=== PATIENT | female | born 1985 | race Caucasian/White ===

== ENCOUNTER 2019-07-27 05:27 | Inpatient (IN) | payer BC ==
[~2019-07-27 05:27] MED LIST: Sodium Chloride 0.9% 10 ML Syringe FLUSH PRN
[2019-07-27] MEDS: Lactated Ringers 1,000 ML IV SCH ×2 (06:05→06:42)
[2019-07-27] MEDS ORDERED: Metoclopramide 10 MG/2 ML SDV ONE (06:22)
[2019-07-27] MEDS ORDERED: Citric Acid/Sodium Citrate Solution 30 ML Cup ONE (06:22)
[2019-07-27] MEDS ORDERED: Citric Acid/Sodium Citrate Solution 30 ML Cup PO ONE (06:45)
[2019-07-27] MEDS ORDERED: Metoclopramide 10 MG/2 ML SDV IVPUSH ONE (06:45)
[2019-07-27] MEDS ORDERED: ceFAZolin 2 GM in Premix Bag 1 BAG IV ONE (07:00)
[2019-07-27] MEDS ORDERED: Oxytocin/Lactated Ringers 10 UNIT/1,000 ML BAG IV SCH (07:00)
--- NOTE | 2019-07-27 07:10 | PCM.PREANE ---
Preanesthetic Assessment - Procedure Proposed Procedure: - Anesthesia/Transfusion/Family Hx Anesthesia History: Prior Anesthesia Without Reaction Family History of Anesthesia Reaction: No Transfusion History: No Prior Transfusion(s) - Review of Systems General: No Symptoms Pulmonary: No Symptoms Cardiovascular: No Symptoms Gastrointestinal: No Symptoms Neurological: No Symptoms Other: Reports: None - Physical Assessment NPO Status Date: 07/26/19 NPO Status Time: 18:00 Vital Signs: Last Vital Signs Temp 37.0 C 07/27/19 05:54 Pulse Resp 14 07/27/19 05:54 BP 124/74 07/27/19 05:54 Pulse Ox 98 07/27/19 05:54 Height: 1.64 m Weight: 100.698 kg ASA Class: 2 Mental Status: Alert & Oriented x3 Airway Class: Mallampati = 2 Dentition: Reports: Normal Dentition Thyro-Mental Finger Breadths: 3 Mouth Opening Finger Breadths: 3 ROM/Head Extension: Full Lungs: Clear to Auscultation, Normal Respiratory Effort Cardiovascular: Regular Rate, Regular Rhythm - Lab Values: Laboratory Last Values WBC 9.84 K/mm3 (3.98-10.04) 07/27/19 05:45 RBC 3.90 M/mm3 (3.98-5.22) L 07/27/19 05:45 Hgb 11.1 gm/dl (11.2-15.7) L 07/27/19 05:45 Hct 35.0 % (34.1-44.9) 07/27/19 05:45 MCV 89.7 fl (79.4-94.8) 07/27/19 05:45 MCH 28.5 pg (25.6-32.2) 07/27/19 05:45 MCHC 31.7 g/dl (32.2-35.5) L 07/27/19 05:45 RDW Std Deviation 42.2 fL (36.4-46.3) 07/27/19 05:45 Plt Count 318 K/mm3 (182-369) 07/27/19 05:45 MPV 11.0 fl (9.4-12.3) 07/27/19 05:45 Neut % (Auto) 60.3 % (34.0-71.1) 07/27/19 05:45 Lymph % (Auto) 28.4 % (19.3-51.7) 07/27/19 05:45 Harmon % (Auto) 9.6 % (4.7-12.5) 07/27/19 05:45 Eos % (Auto) 0.4 (0.7-5.8) L 07/27/19 05:45 Baso % (Auto) 0.2 % (0.1-1.2) 07/27/19 05:45 Neut # (Auto) 5.94 K/mm3 (1.56-6.13) 07/27/19 05:45 Lymph # (Auto) 2.79 K/mm3 (1.18-3.74) 07/27/19 05:45 Harmon # (Auto) 0.94 K/mm3 (0.24-0.36) H 07/27/19 05:45 Eos # (Auto) 0.04 K/mm3 (0.04-0.36) 07/27/19 05:45 Baso # (Auto) 0.02 K/mm3 (0.01-0.08) 07/27/19 05:45 Manual Slide Review Normal smear 07/27/19 05:45 Creatinine 0.9 mg/dL (0.55-1.02) 07/27/19 05:45 Est Cr Clr Drug Dosing 78.39 mL/min 07/27/19 05:45 Estimated GFR (MDRD) > 60 mL/min (>60) 07/27/19 05:45 AST 21 U/L (15-37) 07/27/19 05:45 ALT 25 U/L (14-59) 07/27/19 05:45 - Allergies Allergies/Adverse Reactions: Allergies Allergy/AdvReac Type Severity Reaction Status Date / Time No Known Allergies Allergy Verified 07/27/19 05:40 - Anesthesia Plan Pre-Op Medication Ordered: None - Acknowledgements Anesthesia Type Planned: Spinal Pt an Appropriate Candidate for the Planned Anesthesia: Yes Alternatives and Risks of Anesthesia Discussed w Pt/Guardian: Yes Pt/Guardian Understands and Agrees with Anesthesia Plan: Yes PreAnesthesia Questionnaire Gastrointestinal History: Reports: GERD 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 OB/BYN History: C/S in 2011 - Past Surgical History GI Surgical History: Reports: Appendectomy Other GI Surgeries/Procedures: 1995- open appy ruptured in OR Musculoskeletal Surgical History: Reports: Arthroscopic Procedure, Other (See Below) Other Musculoskeletal Surgeries/Procedures:: 2016 ACL L knee reconstruction, Right lateral release knee arthroscopy 2007 - SUBSTANCE USE Smoking Status *Q: Former Smoker Tobacco Use Within Last Twelve Months: Cigarettes Second Hand Smoke Exposure: No Recreational Drug Use History: No - HOME MEDS Home Medications: Home Meds Aspirin 81 mg PO DAILY 07/20/19 [History] Docusate Sodium [Colace] 100 mg PO BID PRN 07/20/19 [History] Potassium Gluconate [Potassium] 99 mg PO DAILY 07/20/19 [History] No122/Iron/Folic Acid [ Multi Tablet] 1 each PO DAILY 07/20/19 [History] - CURRENT (IN HOUSE) MEDS Current Meds: Current Medications Cefazolin Sodium/Dextrose 2 gm (/ Premix) 50 mls @ 100 mls/hr IV ONETIME ONE Stop: 07/27/19 07:29 Lactated Ringer's (Ringers, Lactated) 1,000 mls @ 125 mls/hr IV ASDIRECTED KELSY Last Admin: 07/27/19 06:42 Dose: 125 mls/hr Oxytocin/Lactated Ringer's (Pitocin In Lr 10 Units/1,000 Ml) 10 unit in 1,000 mls @ 100 mls/hr IV ASDIRECTED KELSY; Protocol Sodium Chloride (Saline Flush) 10 ml FLUSH ASDIRECTED PRN PRN Reason: Keep Vein Open Discontinued Medications Citric Acid/Sodium Citrate (Bicitra Solution) 30 ml PO ONETIME ONE Stop: 07/27/19 06:46 Last Admin: 07/27/19 06:43 Dose: 30 ml Citric Acid/Sodium Citrate (Bicitra Solution) Confirm Administered Dose 30 ml .ROUTE .STK-MED ONE Stop: 07/27/19 06:23 Last Admin: 07/27/19 06:41 Dose: Not Given Metoclopramide HCl (Reglan) 10 mg IVPUSH ONETIME ONE Stop: 07/27/19 06:46 Last Admin: 07/27/19 06:43 Dose: 10 mg Metoclopramide HCl (Reglan) Confirm Administered Dose 10 mg .ROUTE .STK-MED ONE Stop: 07/27/19 06:23 Last Admin: 07/27/19 06:41 Dose: Not Given
[2019-07-27] MEDS ORDERED: ceFAZolin 1 GM Vial ONE (07:13)
[2019-07-27] MEDS ORDERED: Phenylephrine 1% 10 MG/ML SDV ONE (07:13)
[2019-07-27] MEDS ORDERED: Morphine PF 10 MG/10 ML SDV ONE (07:13)
[2019-07-27] MEDS ORDERED: Lactated Ringers 1,000 ML ONE (07:45)
[2019-07-27] MEDS ORDERED: Oxytocin 10 Units/1 ML SDV ONE (07:53)
[2019-07-27] MEDS ORDERED: Ketorolac 30 MG/ML SDV ONE (08:01)
[2019-07-27] MEDS ORDERED: diphenhydrAMINE 50 MG/ML SDV IVPUSH PRN ×2 (08:30→09:30)
--- NOTE | 2019-07-27 08:31 | PCM.POSTAN ---
POST ANESTHESIA ASSESSMENT - MENTAL STATUS Mental Status: Alert, Oriented - VITAL SIGNS Vital Signs: Last Vital Signs Temp 37.0 C 07/27/19 05:54 Pulse Resp 14 07/27/19 05:54 BP 124/74 07/27/19 05:54 Pulse Ox 98 07/27/19 05:54 - RESPIRATORY Respiratory Status: Respiratory Rate WNL, Airway Patent, O2 Saturation Stable - CARDIOVASCULAR CV Status: Pulse Rate WNL, Blood Pressure Stable - GASTROINTESTINAL GI Status: No Symptoms - PAIN Pain Score: 0 - POST OP HYDRATION Hydration Status: Adequate & Stable - OBSERVATIONS Free Text/Narrative:: no anesthesia complications noted
--- NOTE | 2019-07-27 08:32 | PCM.OPNOTE ---
- General Post-Op/Procedure Note Date of Surgery/Procedure: 07/27/19 Operative Procedure(s): Repeat low transverse Findings: Minimal scar tissue noted between the rectus and fascia. Minimal scar tissue between the blader and the MARILYN. Baby boy in vertex presentation. APGARS 8 & 9. Weight of 7 lbs 3 oz. Normal appearance of the uterus, ovaries, and fallopian tubes Pre Op Diagnosis: 37 2/7 wks. Gestational hypertension. Hx of Post-Op Diagnosis: Same Anesthesia Technique: Spinal Primary Surgeon: Nataliia Willingham Secondary Surgeon: Clau Jacobo Anesthesia Provider: Dayday Acosta Reason Head Resident Was Necessary: BMI of patient. Speed/safety of procedure Pathology: Cord blood collected. Placenta discarded Fluid Replacement, Intraop: 2,800 Output, Urine Amount: 700 EBL in mLs: 700 Complications: None Condition: Good Free Text/Narrative:: The risks, benefits, indications, potential complications, and alternatives were explained to the patient and informed consent obtained. After induction of anesthesia, the patient was placed in a supine position and then draped and prepped in the usual sterile manner. A Pfannenstiel incision was made and carried down through the subcutaneous tissue to the fascia. Fascial incision was made and extended transversely. The fascia was from the underlying rectus tissue superiorly and inferiorly. The peritoneum was identified and entered. Peritoneal incision was extended longitudinally. The utero-vesical peritoneal reflection was incised transversely and the bladder flap was bluntly freed from the lower uterine segment. A low transverse uterine incision was made sharply with a scalpel and extended bluntly in a cephalocaudad direction. A baby boy was delivered from a vertex presentation with APGARS as above. After the umbilical cord was clamped and cut cord blood was obtained for evaluation. The placenta was removed intact and appeared normal. The uterus was exteriorized and cleared of clots. The uterine outline, tubes and ovaries appeared normal. The uterine incision was closed with running locked sutures of 0 Vicryl. Hemostasis was noted. The uterus was then placed back into the abdomen. The infracolic gutters were cleared of blood clots. The fascia was then reapproximated with running sutures of 0 Vicryl. The subcutaneous tissue was irrigated with sterile warm normal saline, hemostasis obtained with cautery. This layer was also closed with a running 0 vicryl as well. The skin was reapproximated with running Subcuticular 4-0 monocryl sutures. Instrument, sponge, and needle counts were correct prior the abdominal closure and at the conclusion of the case.
[2019-07-27] MEDS ORDERED: Ondansetron 4 MG/2 ML SDV IV PRN (09:30)
[2019-07-27] MEDS ORDERED: ePHEDrine 50 MG/ML SDV IVPUSH PRN (09:30)
[2019-07-27] MEDS ORDERED: Naloxone 0.4 MG/ML SDV IVPUSH PRN (09:30)
[2019-07-27] MEDS ORDERED: Dextrose 5%-Lactated Ringers 1,000 ML IV SCH (09:30)
[2019-07-27] MEDS ORDERED: Acetaminophen/oxyCODONE 325-5 MG Tab PO PRN (09:30)
[2019-07-27] MEDS: Ketorolac 30 MG/ML SDV IVPUSH SCH ×2 (15:07→21:11)
[2019-07-28] MEDS: Ketorolac 30 MG/ML SDV IVPUSH SCH (02:26)
[2019-07-28] MEDS: Acetaminophen 325 MG Tab PO PRN ×2 (06:17→10:31)
--- NOTE | 2019-07-28 06:55 | PCM.PNPP ---
- General Info Date of Service: 07/28/19 Functional Status: Reports: Pain Controlled, Tolerating Diet, Ambulating - Review of Systems General: Reports: No Symptoms Pulmonary: Reports: No Symptoms Cardiovascular: Reports: No Symptoms Gastrointestinal: Reports: Abdominal Pain (managed with medications ) Genitourinary: Reports: No Symptoms Musculoskeletal: Reports: No Symptoms - Patient Data Vital Signs - Most Recent: Last Vital Signs Temp 36.9 C 07/28/19 05:15 Pulse 86 07/28/19 05:15 Resp 16 07/28/19 05:15 BP 133/66 07/28/19 05:15 Pulse Ox 95 07/28/19 05:15 Weight - Most Recent: 100.698 kg I&O - Last 24 Hours: Intake & Output 07/27/19 07/27/19 07/28/19 14:59 22:59 06:59 Intake Total 3300 1000 Output Total 830 1500 1800 Balance 2470 -500 -1800 Lab Results - Last 24 Hours: Laboratory Results - last 24 hr 07/27/19 07/27/19 07/28/19 Range/Units 05:35 05:45 05:45 WBC 9.61 (3.98-10.04) K/mm3 RBC 3.11 L (3.98-5.22) M/mm3 Hgb 8.7 L D (11.2-15.7) gm/dl Hct 28.1 L (34.1-44.9) % MCV 90.4 (79.4-94.8) fl MCH 28.0 (25.6-32.2) pg MCHC 31.0 L (32.2-35.5) g/dl RDW Std Deviation 41.8 (36.4-46.3) fL Plt Count 240 D (182-369) K/mm3 MPV 10.9 (9.4-12.3) fl RPR Non-reactive (NONREACTIVE) Blood Type O POSITIVE Gel Antibody Screen Negative Med Orders - Current: Current Medications Acetaminophen (Tylenol) 650 mg PO Q4H PRN PRN Reason: Pain (mild 1-3) Last Admin: 07/28/19 06:17 Dose: 650 mg Diphenhydramine HCl (Benadryl) 25 mg IVPUSH Q6H PRN PRN Reason: Itching or Nausea Last Admin: 07/27/19 15:38 Dose: 25 mg Docusate Sodium (Colace) 100 mg PO Q12H PRN PRN Reason: Constipation Ephedrine Sulfate (Ephedrine Sulfate) 5 mg IVPUSH SEECOMMENT PRN PRN Reason: Other Ibuprofen (Motrin) 600 mg PO Q6H PRN PRN Reason: mild pain or fever Naloxone HCl (Narcan) 0.1 mg IVPUSH SEECOMMENT PRN PRN Reason: Respiratory Depression Ondansetron HCl (Zofran) 4 mg IV Q8H PRN PRN Reason: Nausea/Vomiting Oxycodone/Acetaminophen (Percocet 325-5 Mg) 2 tab PO Q4H PRN PRN Reason: Pain (severe 7-10) Oxycodone/Acetaminophen (Percocet 325-5 Mg) 1 tab PO Q4H PRN PRN Reason: Pain (moderate 4-6) Prenat Multivit/[place]/Iron/Folic Ac ( Plus Iron) 1 each PO DAILY KELSY Discontinued Medications Cefazolin Sodium (Ancef) Confirm Administered Dose 2 gm .ROUTE .STK-MED ONE Stop: 07/27/19 07:14 Citric Acid/Sodium Citrate (Bicitra Solution) 30 ml PO ONETIME ONE Stop: 07/27/19 06:46 Last Admin: 07/27/19 06:43 Dose: 30 ml Citric Acid/Sodium Citrate (Bicitra Solution) Confirm Administered Dose 30 ml .ROUTE .STK-MED ONE Stop: 07/27/19 06:23 Last Admin: 07/27/19 06:41 Dose: Not Given Diphenhydramine HCl (Benadryl) 25 mg IVPUSH Q6H PRN PRN Reason: Itching Cefazolin Sodium/Dextrose 2 gm (/ Premix) 50 mls @ 100 mls/hr IV ONETIME ONE Stop: 07/27/19 07:29 Last Admin: 07/27/19 13:13 Dose: Not Given Lactated Ringer's (Ringers, Lactated) 1,000 mls @ 125 mls/hr IV ASDIRECTED [facility] Last Admin: 07/27/19 06:42 Dose: 125 mls/hr Oxytocin/Lactated Ringer's (Pitocin In Lr 10 Units/1,000 Ml) 10 unit in 1,000 mls @ 100 mls/hr IV ASDIRECTED KELSY; Protocol Lactated Ringer's (Ringers, Lactated) Confirm Administered Dose 1,000 mls @ as directed .ROUTE .STK-MED ONE Stop: 07/27/19 07:46 Dextrose/Lactated Ringer's (Dextrose 5%-Lactated Ringers) 1,000 mls @ 125 mls/ hr IV ASDIRECTED KELSY Stop: 07/27/19 17:29 Last Admin: 07/27/19 10:20 Dose: 125 mls/hr Ketorolac Tromethamine (Toradol) Confirm Administered Dose 30 mg .ROUTE .STK- MED ONE Stop: 07/27/19 08:02 Ketorolac Tromethamine (Toradol) 30 mg IVPUSH Q6H KELSY Stop: 07/28/19 02:16 Last Admin: 07/28/19 02:26 Dose: 30 mg Metoclopramide HCl (Reglan) 10 mg IVPUSH ONETIME ONE Stop: 07/27/19 06:46 Last Admin: 07/27/19 06:43 Dose: 10 mg Metoclopramide HCl (Reglan) Confirm Administered Dose 10 mg .ROUTE .STK-MED ONE Stop: 07/27/19 06:23 Last Admin: 07/27/19 06:41 Dose: Not Given Morphine Sulfate (Duramorph Pf) Confirm Administered Dose 10 mg .ROUTE .STK-MED ONE Stop: 07/27/19 07:14 Oxytocin (Pitocin) Confirm Administered Dose 10 unit .ROUTE .STK-MED ONE Stop: 07/27/19 07:54 Phenylephrine HCl (Pierce-Synephrine) Confirm Administered Dose 10 mg .ROUTE .STK- MED ONE Stop: 07/27/19 07:14 Sodium Chloride (Saline Flush) 10 ml FLUSH ASDIRECTED PRN PRN Reason: Keep Vein Open - Infant Interaction Infant Disposition, : [place] in Room with Family Interaction: Holding Feeding: Attempted ; Nursed Fair/Poor Support Person: Significant Other - Recovery Exam Fundal Tone: Firm Fundal Level: At Umbilicus Fundal Placement: Midline Lochia Amount: Scant, Small Lochia Color: Rubra/Red Perineum Description: Intact, Minimal Bruising/Swelling Episiotomy/Laceration: None Bladder Status: Nonpalpable, Indwelling Catheter in Place Urinary Elimination: Indwelling Catheter - Exam General: Alert, Oriented, Cooperative Lungs: Clear to Auscultation, Normal Respiratory Effort Cardiovascular: Regular Rate, Regular Rhythm GI/Abdominal Exam: Soft, Tender (appropriate post op) Extremities: Pedal Edema - Problem List & Annotations (1) 37 weeks gestation of SNOMED Code(s): 52505199 Code(s): Z3A.37 - 37 WEEKS GESTATION OF Status: Acute Current Visit: Yes (2) History of SNOMED Code(s): 743393605 Code(s): Z98.891 - HISTORY OF UTERINE SCAR FROM PREVIOUS SURGERY Status: Acute Current Visit: Yes (3) Gestational hypertension SNOMED Code(s): 278442083 Code(s): O13.9 - GESTATIONAL HTN W/O SIGNIFICANT PROTEINURIA, UNSP TRIMESTER Status: Acute Current Visit: Yes Qualifiers: Trimester: third trimester Qualified Code(s): O13.3 - Gestational [ -induced] hypertension without significant proteinuria, third trimester (4) S/P repeat low transverse SNOMED Code(s): 032577269, 95297654, 259247466, 368612543, 184355086 Code(s): Z98.891 - HISTORY OF UTERINE SCAR FROM PREVIOUS SURGERY Status: Acute Current Visit: Yes - Problem List Review Problem List Initiated/Reviewed/Updated: Yes - My Orders Last 24 Hours: My Active Orders 07/27/19 09:30 Activity as Tolerated [RC] .Routine Antiembolic Devices [RC] PER UNIT ROUTINE Communication Order [RC] PER UNIT ROUTINE Intake and Output [RC] Q4HR May Shower [RC] PER UNIT ROUTINE Notify Provider Intake and Out [RC] ASDIRECTED RT Incentive Spirometry [RC] Q2HWA Vital Signs [RC] Q4HR Acetaminophen/oxyCODONE [Percocet 325-5 MG] 1 tab PO Q4H PRN Acetaminophen/oxyCODONE [Percocet 325-5 MG] 2 tab PO Q4H PRN Docusate Sodium [Colace] 100 mg PO Q12H PRN Naloxone [Narcan] 0.1 mg IVPUSH SEECOMMENT PRN Ondansetron [Zofran] 4 mg IV Q8H PRN diphenhydrAMINE [Benadryl] 25 mg IVPUSH Q6H PRN ePHEDrine [ePHEDrine sulfate] 5 mg IVPUSH SEECOMMENT PRN Assess Lochia [WOMSER] Per Unit Routine Assess Uterine Involution [WOMSER] Per Unit Routine Breast Pump [WOMSER] Per Unit Routine Heat Therapy [OM.PC] Per Unit Routine Peripheral IV Discontinue [OM.PC] Routine Sequential Compression Device [OM.PC] Per Unit Routine 07/27/19 Breakfast Regular Diet [DIET] 07/28/19 06:01 Acetaminophen [Tylenol] 650 mg PO Q4H PRN 07/28/19 08:34 Urinary Catheter Removal [RC] Per Unit Routine 07/28/19 09:00 Ibuprofen [Motrin] 600 mg PO Q6H PRN Vit with Ca/FA/Iron [ Plus Iron] 1 each PO DAILY - Assessment Assessment:: POD#1 - Plan Plan:: * Routine cares * Monitor BP's * Hb with appropriate drop * Breast feeding * Discharge home in 2 days
--- NOTE | 2019-07-28 07:32 | PCM48HPAN ---
Post Anesthesia Note - EVALUATION WITHIN 48HRS OF ANESTHETIC Vital Signs in Normal Range: Yes Patient Participated in Evaluation: Yes Respiratory Function Stable: Yes Airway Patent: Yes Cardiovascular Function Stable: Yes Hydration Status Stable: Yes Pain Control Satisfactory: Yes Nausea and Vomiting Control Satisfactory: Yes Mental Status Recovered: Yes Vital Signs: Last Vital Signs Temp 36.9 C 07/28/19 05:15 Pulse 86 07/28/19 05:15 Resp 16 07/28/19 05:15 BP 133/66 07/28/19 05:15 Pulse Ox 95 07/28/19 05:15 - COMMENTS/OBSERVATIONS Free Text/Narrative:: no anesthesia complications noted
[2019-07-28] MEDS: Docusate Sodium 100 MG Cap PO PRN ×2 (09:09→22:17)
[2019-07-28] MEDS: Prenatal Multivitamin with Calcium/Folic Acid/Iron Tab PO SCH (09:09)
[2019-07-28] MEDS: Ibuprofen 600 MG Tab PO PRN ×2 (14:46→22:17)
[2019-07-28] MEDS ORDERED: Measles, Mumps & Rubella Vaccine 0.5 ML SDV SUBCUT ONE (15:17)
[2019-07-28] MEDS: Acetaminophen/oxyCODONE 325-5 MG Tab PO PRN (17:27)
[2019-07-29] MEDS: Ibuprofen 600 MG Tab PO PRN ×2 (05:10→15:41)
--- NOTE | 2019-07-29 07:45 | PCM.PNPP ---
- General Info Date of Service: 07/29/19 Functional Status: Reports: Pain Controlled, Tolerating Diet, Ambulating, Urinating - Review of Systems General: Reports: No Symptoms Pulmonary: Reports: No Symptoms Cardiovascular: Reports: No Symptoms Gastrointestinal: Reports: Abdominal Pain (has been better managed since started using percocet ) Genitourinary: Reports: No Symptoms Musculoskeletal: Reports: No Symptoms Neurological: Reports: No Symptoms - Patient Data Vital Signs - Most Recent: Last Vital Signs Temp 36.6 C 07/29/19 03:01 Pulse 91 07/29/19 03:01 Resp 16 07/29/19 03:01 BP 138/81 07/29/19 03:01 Pulse Ox 98 07/29/19 03:01 Weight - Most Recent: 100.698 kg I&O - Last 24 Hours: Intake & Output 07/28/19 07/29/19 07/29/19 22:59 06:59 14:59 Intake Total 2800 Output Total 1000 Balance 1800 Med Orders - Current: Current Medications Acetaminophen (Tylenol) 650 mg PO Q4H PRN PRN Reason: Pain (mild 1-3) Last Admin: 07/28/19 10:31 Dose: 650 mg Diphenhydramine HCl (Benadryl) 25 mg IVPUSH Q6H PRN PRN Reason: Itching or Nausea Last Admin: 07/27/19 15:38 Dose: 25 mg Docusate Sodium (Colace) 100 mg PO Q12H PRN PRN Reason: Constipation Last Admin: 07/28/19 22:17 Dose: 100 mg Ephedrine Sulfate (Ephedrine Sulfate) 5 mg IVPUSH SEECOMMENT PRN PRN Reason: Other Ibuprofen (Motrin) 600 mg PO Q6H PRN PRN Reason: mild pain or fever Last Admin: 07/29/19 05:10 Dose: 600 mg Naloxone HCl (Narcan) 0.1 mg IVPUSH SEECOMMENT PRN PRN Reason: Respiratory Depression Ondansetron HCl (Zofran) 4 mg IV Q8H PRN PRN Reason: Nausea/Vomiting Oxycodone/Acetaminophen (Percocet 325-5 Mg) 2 tab PO Q4H PRN PRN Reason: Pain (severe 7-10) Last Admin: 07/28/19 17:27 Dose: 2 tab Oxycodone/Acetaminophen (Percocet 325-5 Mg) 1 tab PO Q4H PRN PRN Reason: Pain (moderate 4-6) Last Admin: 07/28/19 13:02 Dose: 1 tab Prenat Multivit/Electrical Design Technologist/Iron/Folic Ac ( Plus Iron) 1 each PO DAILY KELSY Last Admin: 07/28/19 09:09 Dose: 1 each Discontinued Medications Cefazolin Sodium (Ancef) Confirm Administered Dose 2 gm .ROUTE .STK-MED ONE Stop: 07/27/19 07:14 Citric Acid/Sodium Citrate (Bicitra Solution) 30 ml PO ONETIME ONE Stop: 07/27/19 06:46 Last Admin: 07/27/19 06:43 Dose: 30 ml Citric Acid/Sodium Citrate (Bicitra Solution) Confirm Administered Dose 30 ml .ROUTE .STK-MED ONE Stop: 07/27/19 06:23 Last Admin: 07/27/19 06:41 Dose: Not Given Diphenhydramine HCl (Benadryl) 25 mg IVPUSH Q6H PRN PRN Reason: Itching Cefazolin Sodium/Dextrose 2 gm (/ Premix) 50 mls @ 100 mls/hr IV ONETIME ONE Stop: 07/27/19 07:29 Last Admin: 07/27/19 13:13 Dose: Not Given Lactated Ringer's (Ringers, Lactated) 1,000 mls @ 125 mls/hr IV ASDIRECTED [facility] Last Admin: 07/27/19 06:42 Dose: 125 mls/hr Oxytocin/Lactated Ringer's (Pitocin In Lr 10 Units/1,000 Ml) 10 unit in 1,000 mls @ 100 mls/hr IV ASDIRECTED [facility]; Protocol Lactated Ringer's (Ringers, Lactated) Confirm Administered Dose 1,000 mls @ as directed .ROUTE .STK-MED ONE Stop: 07/27/19 07:46 Dextrose/Lactated Ringer's (Dextrose 5%-Lactated Ringers) 1,000 mls @ 125 mls/ hr IV ASDIRECTED [facility] Stop: 07/27/19 17:29 Last Admin: 07/27/19 10:20 Dose: 125 mls/hr Ketorolac Tromethamine (Toradol) Confirm Administered Dose 30 mg .ROUTE .STK- MED ONE Stop: 07/27/19 08:02 Ketorolac Tromethamine (Toradol) 30 mg IVPUSH Q6H KELSY Stop: 07/28/19 02:16 Last Admin: 07/28/19 02:26 Dose: 30 mg Measles/Mumps/Rubella Vaccine Live (M-M-R Ii Vaccine) 0.5 ml SUBCUT .ONCE ONE Stop: 07/28/19 15:18 Last Admin: 07/28/19 15:47 Dose: 0.5 ml Metoclopramide HCl (Reglan) 10 mg IVPUSH ONETIME ONE Stop: 07/27/19 06:46 Last Admin: 07/27/19 06:43 Dose: 10 mg Metoclopramide HCl (Reglan) Confirm Administered Dose 10 mg .ROUTE .STK-MED ONE Stop: 07/27/19 06:23 Last Admin: 07/27/19 06:41 Dose: Not Given Morphine Sulfate (Duramorph Pf) Confirm Administered Dose 10 mg .ROUTE .STK-MED ONE Stop: 07/27/19 07:14 Oxytocin (Pitocin) Confirm Administered Dose 10 unit .ROUTE .STK-MED ONE Stop: 07/27/19 07:54 Phenylephrine HCl (Pierce-Synephrine) Confirm Administered Dose 10 mg .ROUTE .STK- MED ONE Stop: 07/27/19 07:14 Sodium Chloride (Saline Flush) 10 ml FLUSH ASDIRECTED PRN PRN Reason: Keep Vein Open - Infant Interaction Infant Disposition, : in Room with Family Infant Interaction: Holding Infant Feeding: Attempted ; Nursed Fair/Poor Support Person: Significant Other - Recovery Exam Fundal Tone: Firm Fundal Level: 1 Fingerbreadths Below Umbilicus Fundal Placement: Midline Lochia Amount: Small Lochia Color: Rubra/Red Perineum Description: Intact, Minimal Bruising/Swelling Episiotomy/Laceration: None Bladder Status: Voiding Urinary Elimination: Voided - Exam General: Alert, Oriented, Cooperative Lungs: Clear to Auscultation, Normal Respiratory Effort Cardiovascular: Regular Rate, Regular Rhythm GI/Abdominal Exam: Soft, Tender (appropriate post op) Extremities: Normal Inspection Skin: Warm, Dry, Intact Wound/Incisions: Healing Well - Problem List & Annotations (1) 37 weeks gestation of SNOMED Code(s): 66345106 Code(s): Z3A.37 - 37 WEEKS GESTATION OF Status: Acute Current Visit: Yes (2) History of SNOMED Code(s): 439744426 Code(s): Z98.891 - HISTORY OF UTERINE SCAR FROM PREVIOUS SURGERY Status: Acute Current Visit: Yes (3) Gestational hypertension SNOMED Code(s): 754192781 Code(s): O13.9 - GESTATIONAL HTN W/O SIGNIFICANT PROTEINURIA, UNSP TRIMESTER Status: Acute Current Visit: Yes Qualifiers: Trimester: third trimester Qualified Code(s): O13.3 - Gestational [ -induced] hypertension without significant proteinuria, third trimester (4) S/P repeat low transverse SNOMED Code(s): 524439329, 93520795, 416060942, 783386023, 637258313 Code(s): Z98.891 - HISTORY OF UTERINE SCAR FROM PREVIOUS SURGERY Status: Acute Current Visit: Yes - Problem List Review Problem List Initiated/Reviewed/Updated: Yes - My Orders Last 24 Hours: My Active Orders 07/28/19 09:00 Ibuprofen [Motrin] 600 mg PO Q6H PRN Vit with Ca/FA/Iron [ Plus Iron] 1 each PO DAILY - Assessment Assessment:: POD#2 - Plan Plan:: * Routine cares * Monitor BP's. Have been normal to mild range * Breast feeding and pumping * Discharge home tomorrow
[2019-07-29] MEDS: Prenatal Multivitamin with Calcium/Folic Acid/Iron Tab PO SCH (08:55)
[2019-07-29] MEDS: Acetaminophen/oxyCODONE 325-5 MG Tab PO PRN ×2 (08:55→18:21)
[2019-07-30] MEDS: Ibuprofen 600 MG Tab PO PRN ×2 (01:24→15:00)
--- NOTE | 2019-07-30 05:05 | PCM.PNPP ---
- General Info Date of Service: 07/30/19 Functional Status: Reports: Pain Controlled, Tolerating Diet, Ambulating, Urinating - Review of Systems General: Reports: No Symptoms Pulmonary: Reports: No Symptoms Cardiovascular: Reports: No Symptoms Gastrointestinal: Reports: Abdominal Pain (well controlled today ) Genitourinary: Reports: No Symptoms Musculoskeletal: Reports: No Symptoms Neurological: Reports: No Symptoms - Patient Data Vital Signs - Most Recent: Last Vital Signs Temp 36.4 C 07/29/19 19:50 Pulse 88 07/29/19 19:50 Resp 19 07/29/19 19:50 BP 136/89 07/29/19 19:50 Pulse Ox 98 07/29/19 19:50 Weight - Most Recent: 100.698 kg I&O - Last 24 Hours: Intake & Output 07/29/19 07/29/19 07/30/19 14:59 22:59 06:59 Intake Total 180 Balance 180 Med Orders - Current: Current Medications Acetaminophen (Tylenol) 650 mg PO Q4H PRN PRN Reason: Pain (mild 1-3) Last Admin: 07/28/19 10:31 Dose: 650 mg Diphenhydramine HCl (Benadryl) 25 mg IVPUSH Q6H PRN PRN Reason: Itching or Nausea Last Admin: 07/27/19 15:38 Dose: 25 mg Docusate Sodium (Colace) 100 mg PO Q12H PRN PRN Reason: Constipation Last Admin: 07/28/19 22:17 Dose: 100 mg Ephedrine Sulfate (Ephedrine Sulfate) 5 mg IVPUSH SEECOMMENT PRN PRN Reason: Other Ibuprofen (Motrin) 600 mg PO Q6H PRN PRN Reason: mild pain or fever Last Admin: 07/30/19 01:24 Dose: 600 mg Naloxone HCl (Narcan) 0.1 mg IVPUSH SEECOMMENT PRN PRN Reason: Respiratory Depression Ondansetron HCl (Zofran) 4 mg IV Q8H PRN PRN Reason: Nausea/Vomiting Oxycodone/Acetaminophen (Percocet 325-5 Mg) 2 tab PO Q4H PRN PRN Reason: Pain (severe 7-10) Last Admin: 07/29/19 18:21 Dose: 2 tab Oxycodone/Acetaminophen (Percocet 325-5 Mg) 1 tab PO Q4H PRN PRN Reason: Pain (moderate 4-6) Last Admin: 07/28/19 13:02 Dose: 1 tab Prenat Multivit/[place]/Iron/Folic Ac ( Plus Iron) 1 each PO DAILY KELSY Last Admin: 07/29/19 08:55 Dose: 1 each Discontinued Medications Cefazolin Sodium (Ancef) Confirm Administered Dose 2 gm .ROUTE .STK-MED ONE Stop: 07/27/19 07:14 Citric Acid/Sodium Citrate (Bicitra Solution) 30 ml PO ONETIME ONE Stop: 07/27/19 06:46 Last Admin: 07/27/19 06:43 Dose: 30 ml Citric Acid/Sodium Citrate (Bicitra Solution) Confirm Administered Dose 30 ml .ROUTE .ST-MED ONE Stop: 07/27/19 06:23 Last Admin: 07/27/19 06:41 Dose: Not Given Diphenhydramine HCl (Benadryl) 25 mg IVPUSH Q6H PRN PRN Reason: Itching Cefazolin Sodium/Dextrose 2 gm (/ Premix) 50 mls @ 100 mls/hr IV ONETIME ONE Stop: 07/27/19 07:29 Last Admin: 07/27/19 13:13 Dose: Not Given Lactated Ringer's (Ringers, Lactated) 1,000 mls @ 125 mls/hr IV ASDIRECTED [facility] Last Admin: 07/27/19 06:42 Dose: 125 mls/hr Oxytocin/Lactated Ringer's (Pitocin In Lr 10 Units/1,000 Ml) 10 unit in 1,000 mls @ 100 mls/hr IV ASDIRECTED [facility]; Protocol Lactated Ringer's (Ringers, Lactated) Confirm Administered Dose 1,000 mls @ as directed .ROUTE .STK-MED ONE Stop: 07/27/19 07:46 Dextrose/Lactated Ringer's (Dextrose 5%-Lactated Ringers) 1,000 mls @ 125 mls/ hr IV ASDIRECTED [facility] Stop: 07/27/19 17:29 Last Admin: 07/27/19 10:20 Dose: 125 mls/hr Ketorolac Tromethamine (Toradol) Confirm Administered Dose 30 mg .ROUTE .STK- MED ONE Stop: 07/27/19 08:02 Ketorolac Tromethamine (Toradol) 30 mg IVPUSH Q6H KELSY Stop: 07/28/19 02:16 Last Admin: 07/28/19 02:26 Dose: 30 mg Measles/Mumps/Rubella Vaccine Live (M-M-R Ii Vaccine) 0.5 ml SUBCUT .ONCE ONE Stop: 07/28/19 15:18 Last Admin: 07/28/19 15:47 Dose: 0.5 ml Metoclopramide HCl (Reglan) 10 mg IVPUSH ONETIME ONE Stop: 07/27/19 06:46 Last Admin: 07/27/19 06:43 Dose: 10 mg Metoclopramide HCl (Reglan) Confirm Administered Dose 10 mg .ROUTE .STK-MED ONE Stop: 07/27/19 06:23 Last Admin: 07/27/19 06:41 Dose: Not Given Morphine Sulfate (Duramorph Pf) Confirm Administered Dose 10 mg .ROUTE .STK-MED ONE Stop: 07/27/19 07:14 Oxytocin (Pitocin) Confirm Administered Dose 10 unit .ROUTE .STK-MED ONE Stop: 07/27/19 07:54 Phenylephrine HCl (Pierce-Synephrine) Confirm Administered Dose 10 mg .ROUTE .STK- MED ONE Stop: 07/27/19 07:14 Sodium Chloride (Saline Flush) 10 ml FLUSH ASDIRECTED PRN PRN Reason: Keep Vein Open - Interaction Infant Disposition, : [place] in Room with Family Interaction: Holding Infant Feeding: Attempted ; Nursed Fair/Poor Support Person: Significant Other - Recovery Exam Fundal Tone: Firm Fundal Level: 1 Fingerbreadths Below Umbilicus Fundal Placement: Midline Lochia Amount: Small Lochia Color: Rubra/Red Perineum Description: Intact, Minimal Bruising/Swelling Episiotomy/Laceration: None Bladder Status: Voiding Urinary Elimination: Voided - Exam General: Alert, Oriented, Cooperative Lungs: Clear to Auscultation, Normal Respiratory Effort Cardiovascular: Regular Rate, Regular Rhythm GI/Abdominal Exam: Soft, Tender (appropriate post op ) Extremities: Normal Inspection Skin: Warm, Dry, Intact Wound/Incisions: Healing Well - Problem List & Annotations (1) 37 weeks gestation of SNOMED Code(s): 75672467 Code(s): Z3A.37 - 37 WEEKS GESTATION OF Status: Acute Current Visit: Yes (2) History of SNOMED Code(s): 538301120 Code(s): Z98.891 - HISTORY OF UTERINE SCAR FROM PREVIOUS SURGERY Status: Acute Current Visit: Yes (3) Gestational hypertension SNOMED Code(s): 876354117 Code(s): O13.9 - GESTATIONAL HTN W/O SIGNIFICANT PROTEINURIA, UNSP TRIMESTER Status: Acute Current Visit: Yes Qualifiers: Trimester: third trimester Qualified Code(s): O13.3 - Gestational [ -induced] hypertension without significant proteinuria, third trimester (4) S/P repeat low transverse SNOMED Code(s): 121153557, 69797288, 474595648, 100507066, 313963504 Code(s): Z98.891 - HISTORY OF UTERINE SCAR FROM PREVIOUS SURGERY Status: Acute Current Visit: Yes - Problem List Review Problem List Initiated/Reviewed/Updated: Yes - Assessment Assessment:: POD#3 - Plan Plan:: * Routine cares * BP's continue to be normal to mild range. Will follow up in 1 week for BP check * Breast feeding and pumping * Discharge today
--- NOTE | 2019-07-30 05:07 | PCM.DCSUM1 ---
Discharge Summary - Discharge Data Discharge Date: 07/30/19 Discharge Disposition: Home, Self-Care 01 Condition: Good - Referral to Home Health Primary Care Physician: Nataliia Willingham MD - Discharge Diagnosis/Problem(s) (1) 37 weeks gestation of SNOMED Code(s): 54712295 ICD Code: Z3A.37 - 37 WEEKS GESTATION OF Status: Acute Current Visit: Yes (2) History of SNOMED Code(s): 100570308 ICD Code: Z98.891 - HISTORY OF UTERINE SCAR FROM PREVIOUS SURGERY Status: Acute Current Visit: Yes (3) Gestational hypertension SNOMED Code(s): 878209310 ICD Code: O13.9 - GESTATIONAL HTN W/O SIGNIFICANT PROTEINURIA, UNSP TRIMESTER Status: Acute Current Visit: Yes Qualifiers: Trimester: third trimester Qualified Code(s): O13.3 - Gestational [ -induced] hypertension without significant proteinuria, third trimester (4) S/P repeat low transverse SNOMED Code(s): 860284652, 02929756, 744078907, 506014278, 790663494 ICD Code: Z98.891 - HISTORY OF UTERINE SCAR FROM PREVIOUS SURGERY Status: Acute Current Visit: Yes - Patient Summary/Data Operative Procedure(s) Performed: Repeat low transverse Complications: None Consults: None Recommended Follow-up Testing/Procedures: Follow up in 1 week for post op check and BP check Hospital Course: 34 y/o presented at 37 2/7 wks for planned repeat in setting of gestational HTN. Procedure was uncomplicated. See operative note. patient did well and was meeting all goals by POD#3. She was discharged to home - Patient Instructions Diet: Regular Diet as Tolerated Activity: No Lifting Over 10 Pounds Activity, Other: Pelvic rest for 6 weeks Driving: Do Not Drive (while taking narcotics ) Showering/Bathing: May Shower, No Tub Bathing/Swimming Wound/Incision Care: Keep Operative Site/Wound Site Clean and Dry Notify Provider of: Fever, Increased Pain, Swelling and Redness, Drainage, Nausea and/or Vomiting - Discharge Plan *PRESCRIPTION DRUG MONITORING PROGRAM REVIEWED*: No *COPY OF PRESCRIPTION DRUG MONITORING REPORT IN PATIENT BRYANT: No Prescriptions/Med Rec: Acetaminophen/oxyCODONE [Percocet 325-5 MG] 1 - 2 tab PO Q6H PRN #20 tablet PRN Reason: Pain (Severe 7-10) Home Medications: Home Meds Docusate Sodium [Colace] 100 mg PO BID PRN 07/20/19 [History] No122/Iron/Folic Acid [ Multi Tablet] 1 each PO DAILY 07/20/19 [History] Acetaminophen/oxyCODONE [Percocet 325-5 MG] 1 - 2 tab PO Q6H PRN #20 tablet 01/08 [Rx] Ibuprofen [Motrin] 600 mg PO Q6H PRN tablet 07/29/19 [Rx] Referrals: Nataliia Willingham MD [Primary Care Provider] - (1 week for incision and BP check ) - Discharge Summary/Plan Comment DC Time >30 min.: No - Patient Data Vitals - Most Recent: Last Vital Signs Temp 36.4 C 07/29/19 19:50 Pulse 88 07/29/19 19:50 Resp 19 07/29/19 19:50 BP 136/89 07/29/19 19:50 Pulse Ox 98 07/29/19 19:50 Weight - Most Recent: 100.698 kg I&O - Last 24 hours: Intake & Output 07/29/19 07/29/19 07/30/19 14:59 22:59 06:59 Intake Total 180 Balance 180 Med Orders - Current: Current Medications Acetaminophen (Tylenol) 650 mg PO Q4H PRN PRN Reason: Pain (mild 1-3) Last Admin: 07/28/19 10:31 Dose: 650 mg Diphenhydramine HCl (Benadryl) 25 mg IVPUSH Q6H PRN PRN Reason: Itching or Nausea Last Admin: 07/27/19 15:38 Dose: 25 mg Docusate Sodium (Colace) 100 mg PO Q12H PRN PRN Reason: Constipation Last Admin: 07/28/19 22:17 Dose: 100 mg Ephedrine Sulfate (Ephedrine Sulfate) 5 mg IVPUSH SEECOMMENT PRN PRN Reason: Other Ibuprofen (Motrin) 600 mg PO Q6H PRN PRN Reason: mild pain or fever Last Admin: 07/30/19 01:24 Dose: 600 mg Naloxone HCl (Narcan) 0.1 mg IVPUSH SEECOMMENT PRN PRN Reason: Respiratory Depression Ondansetron HCl (Zofran) 4 mg IV Q8H PRN PRN Reason: Nausea/Vomiting Oxycodone/Acetaminophen (Percocet 325-5 Mg) 2 tab PO Q4H PRN PRN Reason: Pain (severe 7-10) Last Admin: 07/29/19 18:21 Dose: 2 tab Oxycodone/Acetaminophen (Percocet 325-5 Mg) 1 tab PO Q4H PRN PRN Reason: Pain (moderate 4-6) Last Admin: 07/28/19 13:02 Dose: 1 tab Prenat Multivit/[place]/Iron/Folic Ac ( Plus Iron) 1 each PO DAILY KELSY Last Admin: 07/29/19 08:55 Dose: 1 each Discontinued Medications Cefazolin Sodium (Ancef) Confirm Administered Dose 2 gm .ROUTE .STK-MED ONE Stop: 07/27/19 07:14 Citric Acid/Sodium Citrate (Bicitra Solution) 30 ml PO ONETIME ONE Stop: 07/27/19 06:46 Last Admin: 07/27/19 06:43 Dose: 30 ml Citric Acid/Sodium Citrate (Bicitra Solution) Confirm Administered Dose 30 ml .ROUTE .STK-MED ONE Stop: 07/27/19 06:23 Last Admin: 07/27/19 06:41 Dose: Not Given Diphenhydramine HCl (Benadryl) 25 mg IVPUSH Q6H PRN PRN Reason: Itching Cefazolin Sodium/Dextrose 2 gm (/ Premix) 50 mls @ 100 mls/hr IV ONETIME ONE Stop: 07/27/19 07:29 Last Admin: 07/27/19 13:13 Dose: Not Given Lactated Ringer's (Ringers, Lactated) 1,000 mls @ 125 mls/hr IV ASDIRECTED KELSY Last Admin: 07/27/19 06:42 Dose: 125 mls/hr Oxytocin/Lactated Ringer's (Pitocin In Lr 10 Units/1,000 Ml) 10 unit in 1,000 mls @ 100 mls/hr IV ASDIRECTED KELSY; Protocol Lactated Ringer's (Ringers, Lactated) Confirm Administered Dose 1,000 mls @ as directed .ROUTE .STK-MED ONE Stop: 07/27/19 07:46 Dextrose/Lactated Ringer's (Dextrose 5%-Lactated Ringers) 1,000 mls @ 125 mls/ hr IV ASDIRECTED KELSY Stop: 07/27/19 17:29 Last Admin: 07/27/19 10:20 Dose: 125 mls/hr Ketorolac Tromethamine (Toradol) Confirm Administered Dose 30 mg .ROUTE .STK- MED ONE Stop: 07/27/19 08:02 Ketorolac Tromethamine (Toradol) 30 mg IVPUSH Q6H KELSY Stop: 07/28/19 02:16 Last Admin: 07/28/19 02:26 Dose: 30 mg Measles/Mumps/Rubella Vaccine Live (M-M-R Ii Vaccine) 0.5 ml SUBCUT .ONCE ONE Stop: 07/28/19 15:18 Last Admin: 07/28/19 15:47 Dose: 0.5 ml Metoclopramide HCl (Reglan) 10 mg IVPUSH ONETIME ONE Stop: 07/27/19 06:46 Last Admin: 07/27/19 06:43 Dose: 10 mg Metoclopramide HCl (Reglan) Confirm Administered Dose 10 mg .ROUTE .STK-MED ONE Stop: 07/27/19 06:23 Last Admin: 07/27/19 06:41 Dose: Not Given Morphine Sulfate (Duramorph Pf) Confirm Administered Dose 10 mg .ROUTE .STK-MED ONE Stop: 07/27/19 07:14 Oxytocin (Pitocin) Confirm Administered Dose 10 unit .ROUTE .STK-MED ONE Stop: 07/27/19 07:54 Phenylephrine HCl (Pierce-Synephrine) Confirm Administered Dose 10 mg .ROUTE .STK- MED ONE Stop: 07/27/19 07:14 Sodium Chloride (Saline Flush) 10 ml FLUSH ASDIRECTED PRN PRN Reason: Keep Vein Open
[2019-07-30] MEDS: Acetaminophen/oxyCODONE 325-5 MG Tab PO PRN (07:28)
[2019-07-30] MEDS: Prenatal Multivitamin with Calcium/Folic Acid/Iron Tab PO SCH (08:56)
[2019-07-30] MEDS: Docusate Sodium 100 MG Cap PO PRN (08:56)
== END 2019-07-30 16:00 | disposition home or self-care (01) | DRG 540 ==
LOC: JD.OB 05:27
PROVIDERS: ADMIT Obstetrics & Gynecology; ATTEND Obstetrics & Gynecology
PROC: 10D00Z1 Extraction of Products of Conception, Low, Open Approach (ICD-10-PCS; principal; 2019-07-27)
PROC: 3E0234Z Introduction of Serum, Toxoid and Vaccine into Muscle, Percutaneous Approach (ICD-10-PCS; 2019-07-28)
DX: O34.211 Maternal care for low transverse scar from previous cesarean delivery (principal); O13.4 Gestational [pregnancy-induced] hypertension without significant proteinuria, complicating childbirth; Z3A.37 37 weeks gestation of pregnancy; Z37.0 Single live birth; Z79.899 Other long term (current) drug therapy; Z90.49 Acquired absence of other specified parts of digestive tract; Z87.891 Personal history of nicotine dependence; Z23 Encounter for immunization
CPT/HCPCS: 01961; 36415; 59025; 82565; 84450; 84460; 85025; 85027; 86592; 86850; 86900; 86901; 90471; 90707; A9270-GY; J0690; J1200; J1885; J2270; J2370; J2590; J2765; J7120; J7121

== ENCOUNTER 2021-07-25 05:16 | Inpatient (IN) | payer BC ==
[~2021-07-25 05:16] MED LIST changes: -Sodium Chloride 0.9% 10 ML Syringe FLUSH PRN; +ceFAZolin 2 GM in Sodium Chloride 0.9% 50 ML IV ONE
[2021-07-25] MEDS: Lactated Ringers 1,000 ML IV SCH ×2 (06:44→06:46)
[2021-07-25] MEDS ORDERED: Citric Acid/Sodium Citrate Solution 30 ML Cup PO ONE (07:00)
[2021-07-25] MEDS ORDERED: Metoclopramide 10 MG/2 ML SDV IVPUSH ONE (07:00)
[2021-07-25] MEDS ORDERED: diphenhydrAMINE 50 MG/ML SDV ONE (07:30)
[2021-07-25] MEDS ORDERED: Morphine PF 10 MG/10 ML SDV ONE (07:30)
[2021-07-25] MEDS ORDERED: ceFAZolin 1 GM Vial ONE (07:31)
[2021-07-25] MEDS ORDERED: Oxytocin/Lactated Ringers 10 UNIT/1,000 ML BAG IV SCH (08:00)
[2021-07-25] MEDS ORDERED: Bupivacaine 0.5% 30 ML SDV ONE (08:02)
[2021-07-25] MEDS ORDERED: Oxytocin 10 Units/1 ML SDV ONE (08:16)
[2021-07-25] MEDS ORDERED: Ondansetron 4 MG/2 ML SDV ONE (08:16)
[2021-07-25] MEDS ORDERED: Ketorolac 30 MG/ML SDV ONE (08:21)
[2021-07-25] MEDS ORDERED: diphenhydrAMINE 50 MG/ML SDV IVPUSH PRN ×2 (11:30→12:27)
[2021-07-25] MEDS ORDERED: fentaNYL 100 MCG/2 ML SDV IVPUSH PRN (11:30)
[2021-07-25] MEDS ORDERED: Meperidine 50 MG/ML Vial IVPUSH PRN (11:30)
[2021-07-25] MEDS ORDERED: Ondansetron 4 MG/2 ML SDV IVPUSH PRN (11:30)
[2021-07-25] MEDS ORDERED: Acetaminophen/oxyCODONE 325-5 MG Tab PO PRN (12:27)
[2021-07-25] MEDS ORDERED: Naloxone 0.4 MG/ML SDV IVPUSH PRN (12:27)
[2021-07-25] MEDS ORDERED: Ondansetron 4 MG/2 ML SDV IV PRN (12:27)
[2021-07-25] MEDS ORDERED: ePHEDrine 50 MG/ML SDV IVPUSH PRN (12:27)
[2021-07-25] MEDS ORDERED: Dextrose 5%-Lactated Ringers 1,000 ML IV SCH (12:27)
[2021-07-25] MEDS: Ketorolac 30 MG/ML SDV IVPUSH SCH ×2 (14:48→20:42)
[2021-07-25] MEDS: FLUoxetine 20 MG Cap PO SCH (14:51)
[2021-07-25] MEDS ORDERED: Lactated Ringers 500 ML IV ONE (21:07)
[2021-07-26] MEDS: Acetaminophen/oxyCODONE 325-5 MG Tab PO PRN ×4 (01:29→20:39)
[2021-07-26] MEDS: Ketorolac 30 MG/ML SDV IVPUSH SCH (02:54)
[2021-07-26] MEDS: FLUoxetine 20 MG Cap PO SCH (12:41)
[2021-07-26] MEDS: Ibuprofen 600 MG Tab PO PRN ×2 (12:49→18:33)
[2021-07-26] MEDS: Docusate Sodium 100 MG Cap PO PRN (15:07)
[2021-07-26] MEDS: Simethicone 80 MG Tab.Chew PO SCH ×2 (17:43→21:49)
[2021-07-27] MEDS: Ibuprofen 600 MG Tab PO PRN ×3 (01:14→19:31)
[2021-07-27] MEDS: Acetaminophen/oxyCODONE 325-5 MG Tab PO PRN ×2 (06:25→13:46)
[2021-07-27] MEDS: Simethicone 80 MG Tab.Chew PO SCH ×3 (06:42→19:31)
[2021-07-27] MEDS: Docusate Sodium 100 MG Cap PO PRN ×2 (06:44→19:31)
[2021-07-27] MEDS: NIFEdipine 30 MG Tab.ER PO SCH (12:35)
[2021-07-27] MEDS: FLUoxetine 20 MG Cap PO SCH (13:13)
[2021-07-28] MEDS: Simethicone 80 MG Tab.Chew PO SCH ×2 (02:48→06:49)
[2021-07-28] MEDS: Ibuprofen 600 MG Tab PO PRN (02:48)
[2021-07-28] MEDS: Acetaminophen/oxyCODONE 325-5 MG Tab PO PRN (02:50)
[2021-07-28] MEDS: NIFEdipine 30 MG Tab.ER PO SCH (08:43)
[2021-07-28] MEDS: FLUoxetine 20 MG Cap PO SCH (08:44)
== END 2021-07-28 10:55 | disposition home or self-care (01) | DRG 540 ==
LOC: JD.OB 05:16
PROVIDERS: ADMIT Obstetrics & Gynecology; ATTEND Obstetrics & Gynecology
PROC: 10D00Z1 Extraction of Products of Conception, Low, Open Approach (ICD-10-PCS; principal; 2021-07-25)
DX: O13.4 Gestational [pregnancy-induced] hypertension without significant proteinuria, complicating childbirth (principal); O34.211 Maternal care for low transverse scar from previous cesarean delivery; Z37.0 Single live birth; O99.62 Diseases of the digestive system complicating childbirth; K21.9 Gastro-esophageal reflux disease without esophagitis; Z20.822 Contact with and (suspected) exposure to COVID-19; O99.02 Anemia complicating childbirth; D64.9 Anemia, unspecified; O99.344 Other mental disorders complicating childbirth; F41.9 Anxiety disorder, unspecified; Z3A.37 37 weeks gestation of pregnancy; Z87.891 Personal history of nicotine dependence
CPT/HCPCS: 01961; 36415; 59025; 82565; 82570; 84156; 84450; 84460; 85025; 85027; 86592; 86850; 86900; 86901; 94762; A9270-GY; J0690; J1200; J1885; J2274; J2405; J2590; J2765; J3490; J7120; U0002

== ENCOUNTER 2023-11-11 13:24 | Emergency (ER) | payer BC ==
[2023-11-11 14:45] LABS: BASOPHILS ABSOLUTE AUTO 0.1 K/mm3 (0.0-0.2); BASOPHILS PERCENT AUTO 0.6 % (0.0-1.0); EOSINOPHILS ABSOLUTE AUTO 0.3 K/mm3 (0.0-0.4); EOSINOPHILS PERCENT AUTO 2.8 % (0.0-6.0); HEMATOCRIT 42.8 % (37.0-47.0); HEMOGLOBIN 14.5 gm/dl (12.0-16.0); IMMATURE GRAN ABSOLUTE AUTO 0.05 K/mm3 (0.00-0.05); IMMATURE GRAN PERCENT AUTO 0.5 % (0.0-0.4); LYMPHOCYTES ABSOLUTE AUTO 2.6 K/mm3 (1.0-4.8); LYMPHOCYTES PERCENT AUTO 27.5 % (24.0-44.0); MEAN CORPUSCULAR HEMOGLOBIN 31.7 pg (28.0-32.0); MEAN CORPUSCULAR HGB CONC 33.9 g/dl (32.0-36.0); MEAN CORPUSCULAR VOLUME 93.4 fl (83.0-99.0); MEAN PLATELET VOLUME 10.2 fl (9.4-12.3); MONOCYTES ABSOLUTE AUTO 0.7 K/mm3 (0.0-0.8); MONOCYTES PERCENT AUTO 6.8 % (0.0-8.0); NEUTROPHILS ABSOLUTE AUTO 5.9 K/mm3 (1.8-7.7); NEUTROPHILS PERCENT AUTO 61.8 % (41.0-71.0); PLATELET COUNT,PLT 251 K/mm3 (150-400); RED BLOOD CELL COUNT 4.58 M/mm3 (4.10-5.30); WHITE BLOOD CELL COUNT,WBC 9.59 K/mm3 (3.9-11.3)
[2023-11-11] MEDS: Metoclopramide 10 MG/2 ML SDV IVPUSH ONE (15:00)
[2023-11-11] MEDS: Sodium Chloride 0.9% 1,000 ML IV ONE ×2 (15:00→17:04)
[2023-11-11] MEDS: Morphine 4 MG/ML Syringe IVPUSH ONE (15:03)
[2023-11-11 15:09] LABS: A/G RATIO 1.2 (1-2); ALBUMIN 3.9 g/dl (3.4-5.0); ANION GAP 14.2 (5-15); BILIRUBIN TOTAL 0.2 mg/dL (0.2-1.0); BUN/CREATININE RATIO 13.3 (14-18); CALCIUM 9.1 mg/dL (8.5-10.1); CREATININE 0.9 mg/dL (0.55-1.02); EST CRCL DRUG DOSING (CG) 73.9 mL/min; MAGNESIUM 1.9 mg/dL (1.8-2.4); POTASSIUM,K 4.2 mEq/L (3.5-5.1); PROTEIN TOTAL,TP 7.1 g/dl (6.4-8.2)
[2023-11-11 17:24] LABS: APPEARANCE,URINE CLEAR (Clear); BILIRUBIN,URINE NEGATIVE (Negative); COLOR,URINE YELLOW (Yellow); GLUCOSE,URINE NEGATIVE (Negative); KETONES,URINE NEGATIVE (Negative); LEUKOCYTE ESTERASE,URINE NEGATIVE (Negative); NITRITE,URINE NEGATIVE (Negative); OCCULT BLOOD,URINE 1+ (Negative); PH,URINE 5.5 (5.0-8.0); PROTEIN,URINE NEGATIVE (Negative); UROBILINOGEN,URINE 0.2 (0.2-1.0)
[2023-11-11 17:37] LABS: BACTERIA,URINE FEW /hpf (FEW); RBC,URINE 0-5 /hpf (0-5); SQUAMOUS EPITHELIAL CELLS,UR 0-5 /hpf (0-5); WBC,URINE 0-5 /hpf (0-5)
[2023-11-11 17:38] LABS: MUCUS,URINE FEW /hpf (FEW)
== END 2023-11-11 17:42 | disposition home or self-care (01) ==
LOC: JD.ED 13:24
DX: K52.9 Noninfective gastroenteritis and colitis, unspecified (principal); T50.905A Adverse effect of unspecified drugs, medicaments and biological substances, initial encounter; Z79.899 Other long term (current) drug therapy; Z86.19 Personal history of other infectious and parasitic diseases
CPT/HCPCS: 36415; 74176; 80053; 81001; 81025; 83605; 83690; 83735; 85025; 96361; 96374; 96375; 99284; J2270; J2765; J7030